=== PATIENT | male | born 1990 | race Hispanic/Latino ===

== ENCOUNTER 2016-10-05 01:42 | Emergency (ER) | payer OTHER ==
[~2016-10-05] VITALS: Ht 175.3 cm; Wt 68.0 kg
--- NOTE | 2016-10-05 01:59 | ED DYSPNEA/ASTHMA COMPLAINT ---
History of Present Illness General Chief Complaint: Wheezing/Asthma Stated Complaint: PT C/O DIFF BREATHING 100% AT [employer] Source: patient Exam Limitations: no limitations Vital Signs & Intake/Output Vital Signs & Intake/Output Vital Signs Date Time Temp Pulse Resp B/P B/P Pulse O2 O2 Flow FiO2 Mean Ox Delivery Rate 10/05 0214 Room Air 10/05 0203 99 10/05 0201 96.5 88 16 111/70 99 Room Air Allergies Coded Allergies: grass pollen (Intermediate, WHEEZE 10/05/16) Reconcile Medications Albuterol Sulfate (Ventolin Hfa) 90 MCG HFA.AER.AD 2 PUF INH Q4-6 PRN PRN ASTHMA Prednisone 50 MG TABLET 1 TAB PO DAILY ASTHMA EXACERBATION Triage Nurses Notes Reviewed? yes Onset: Gradual Duration: hour(s): Timing: recent history Severity: moderate Activities at Onset: working outside Prior Episodes/Possible Cause: no prior episodes Modifying Factors: Improves With: rest. Associated Symptoms: cough, wheezing HPI: 26-year-old gentleman in prior good health presents with cough and wheeze for the past 4-5 hours. He states that he was working outside, cutting the lawn, and was exposed to some underbrush and some dust. He began coughing. His girlfriend notes that his face began looking swollen with bloodshot eyes. As the evening progressed she became more short of breath and wheezy. He states that he has no fever chills chest pain sputum. He is otherwise well. Past History Medical History Any Pertinent Medical History? see below for history Surgical History Surgical History: none Family History Hx Contributory? No Review of Systems Review of Systems Constitutional: Reports: no symptoms. EENTM: Reports: no symptoms. Respiratory: Reports: no symptoms. Cardiovascular: Reports: no symptoms. GI: Reports: no symptoms. Genitourinary: Reports: no symptoms. Musculoskeletal: Reports: no symptoms. Skin: Reports: no symptoms. Neurological/Psychological: Reports: no symptoms. Hematologic/Endocrine: Reports: no symptoms. Immunologic/Allergic: Reports: no symptoms. All Other Systems: Reviewed and Negative Physical Exam Physical Exam General Appearance: well developed/nourished, mild distress, moderate distress Head: atraumatic, normal appearance Eyes: Bilateral: normal appearance. Ears, Nose, Throat: normal pharynx, normal ENT inspection Neck: normal inspection, supple, full range of motion Respiratory: wheezing Cardiovascular: regular rate/rhythm Gastrointestinal: normal bowel sounds, soft, non-tender, no organomegaly Extremities: normal inspection Neurologic/Psych: no motor/sensory deficits, awake, alert, oriented x 3 Skin: intact, normal color, warm/dry Core Measures ACS in differential dx? No Severe Sepsis Present: No Septic Shock Present: No Progress Differential Diagnosis: asthma, bronchitis Plan of Care: Current Medications Sig/David Start time Last Medication Dose Stop Time Status Admin Dexamethasone 4 MG ONCE ONE 10/05 199 CAN (Decadron) 10/05 0201 Initial ED EKG: none Departure Departure Disposition: HOME OR SELF CARE Condition: Stable Clinical Impression Primary Impression: Asthma exacerbation Referrals: PATIENT HAS NO PRIMARY CARE DR (PCP/Family) Departure Forms: Customer Survey General Discharge Information Prescriptions: Current Visit Scripts Prednisone 1 TAB PO DAILY #4 TAB Albuterol Sulfate (Ventolin Hfa) 2 PUF INH Q4-6 PRN PRN ASTHMA #1 INHAL Comments 10/05/16, 3am... pt feeling well, improved aeration on exam. pt safe for discharge with steroids/albuterol. close follow up encouraged. Critical Care Note Critical Care Note Critical Care Time: non-applicable
[2016-10-05 02:01] VITALS: BP 111/70
[2016-10-05] MEDS ORDERED: VENTOLIN HFA18 GM INH (02:17)
[2016-10-05] MEDS ORDERED: PREDNISONE50 M1 PO (02:17)
== END 2016-10-05 03:21 ==
LOC: ERH 01:42
DX: J45.901 Unspecified asthma with (acute) exacerbation (principal)
CPT/HCPCS: 1263; 1395; J1100